=== PATIENT | male | born 1980 | race Caucasian/White ===

== ENCOUNTER 2018-09-14 21:27 | Emergency (ER) | payer BC ==
[~2018-09-14] VITALS: Ht 190.5 cm; Wt 136.1 kg
[~2018-09-14 21:27] MED LIST: ALBU2.5V8 IH; AZIT250T6 PO; HYDR-2145 PO; Hydrocodone/Chlorphen Polis PO; Ipratropium/Albuterol Sulfate NEB; LEVO500T59 PO; PRED10TA2 PO; PRED2.5T PO
--- NOTE | 2018-09-14 21:33 | ED.ADGEN ---
Adult General Chief Complaint Chief Complaint ".. I think .. 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 Has poison jaquan/poison oak pattern. Extensive area of rash on legs and arms. Patient's tetanus is up-to-date. No recent travel. No specific ill contacts. No history immunosuppression. Patient does not smoke. Does occasionally drink. Review of Systems Review of Systems Constitutional: Denies fever or chills [] Eyes: Denies change in visual acuity, redness, or eye pain [] HENT: Denies nasal congestion or sore throat [] Respiratory: Denies cough or shortness of breath [] Cardiovascular: No additional information not addressed in HPI [] GI: Denies abdominal pain, nausea, vomiting, bloody stools or diarrhea [] : Denies dysuria or hematuria [] Musculoskeletal: Denies back pain or joint pain [] Integument: Complaints of poison jaquan Neurologic: Denies headache, focal weakness or sensory changes [] Endocrine: Denies polyuria or polydipsia [] All other systems were reviewed and found to be within normal limits, except as documented in this note. Family History Family History Noncontributory Current Medications Current Medications Current Medications Medications (Trade) Dose Ordered Sig/Jennifer Start Time Stop Time Status Last Admin Dose Admin Methylprednisolone Acetate (DEPO-Medrol IM) 40 mg 1X ONCE 09/14/18 21:45 09/14/18 21:48 DC 09/14/18 21:43 40 MG Allergies Allergies Allergies Coded Allergies Type Severity Reaction Last Updated Verified I S O L A T I O N *CONTACT* Allergy Unknown 12/31/14 No NKMA Allergy Unknown 12/31/14 No Physical Exam Physical Exam Constitutional: Well developed, well nourished, moderate acute distress, non- toxic appearance. [] HENT: Normocephalic, atraumatic, bilateral external ears normal, oropharynx moist, no oral exudates, nose normal. [] Eyes: PERRLA, EOMI, conjunctiva normal, no discharge. [] Neck: Normal range of motion, no tenderness, supple, no stridor. [] Cardiovascular:Heart rate regular rhythm, no murmur [] Lungs & Thorax: Bilateral breath sounds clear to auscultation [] Abdomen: Bowel sounds normal, soft, no tenderness, no masses, no pulsatile masses. [] Skin: Warm, dry, no erythema, stents. Contact dermatitis-poison jaquan/poison oak pattern. Tattoos Back: No tenderness, no CVA tenderness. [] Extremities: No tenderness, no cyanosis, no clubbing, ROM intact, no edema. [] Neurologic: Alert and oriented X 3, normal motor function, normal sensory func tion, no focal deficits noted. [] Psychologic: Affect normal, judgement normal, mood normal. [] Current Patient Data Vital Signs Vital Signs Date Time Temp Pulse Resp B/P (MAP) Pulse Ox O2 Delivery O2 Flow Rate FiO2 09/14/18 21:37 98.2 78 18 98 Room Air EKG EKG [] Radiology/Procedures Radiology/Procedures [] Course & Med Decision Making Course & Med Decision Making Pertinent Labs and Imaging studies reviewed. (See chart for details) Patient wash rash 4 times a day with soap and water. Then massage in Polysporin and hydrocortisone ointment. Patient take Tylenol and ibuprofen for discomfort. Patient to do prednisone taper. Benadryl 25-50 mg up to 4 times a day for severe itching. Follow-up primary care. Return if any con cerns. [] Final Impression Final Impression 1. Contact Dermatitis[]- poison jaquan/ oak pattern. Dragon Disclaimer Dragon Disclaimer This electronic medical record was generated, in whole or in part, using a voice recognition dictation system. CORY SULLIVAN MD Sep 14, 2018 21:32
[2018-09-14 21:37] VITALS: BP 128/77
[2018-09-14] MEDS ORDERED: methylPREDNISolone ACETATE 40 MG/ML VIAL. IM ONE (21:45)
[2018-09-14] MEDS ORDERED: PRED-220 PO (21:47)
== END 2018-09-14 21:58 | disposition home or self-care (01) ==
LOC: ER 21:27
DX: L23.7 Allergic contact dermatitis due to plants, except food (principal); Z91.041 Radiographic dye allergy status
CPT/HCPCS: 96372; 99283; J1030

== ENCOUNTER 2018-09-20 17:53 | Emergency (ER) | payer BC ==
[~2018-09-20] VITALS: Ht 190.5 cm; Wt 136.1 kg
[~2018-09-20 17:53] MED LIST changes: +PRED-220 PO
[2018-09-20 18:07] VITALS: BP 161/100
[2018-09-20] MEDS ORDERED: methylPREDNISolone SOD SUCC PF 125 MG/2 ML VIAL. IV ONE (18:15)
[2018-09-20] MEDS ORDERED: TRIA15CR50 TP (18:25)
[2018-09-20] MEDS ORDERED: PRED-220 PO (18:25)
--- NOTE | 2018-09-20 18:25 | PHYS DOC ---
Past History Past Medical History: No Pertinent History Past Surgical History: Gastric Bypass Alcohol Use: Rarely Drug Use: None Adult General Chief Complaint Chief Complaint: SKIN PROBLEM HPI HPI 38-year-old male presents with rash. The patient was seen by my colleague on the for poison felisa. He has been taking his prednisone. The patient has had additional areas on his arms, back, and legs erupt while he is on prednisone. The patient realizes he must have gotten into more of it by throwing away some trash bags that were used on the original trip where he got the first exposure. It is intensely pruritic. The patient is taking Benadryl multiple times a day. He is also using hydrocortisone topical cream. He denies any other complaints. Review of Systems Review of Systems Constitutional: Denies fever or chills [] Eyes: Denies change in visual acuity, redness, or eye pain [] HENT: Denies nasal congestion or sore throat [] Respiratory: Denies cough or shortness of breath [] Cardiovascular: No additional information not addressed in HPI [] GI: Denies abdominal pain, nausea, vomiting, bloody stools or diarrhea [] : Denies dysuria or hematuria [] Musculoskeletal: Denies back pain or joint pain [] Integument: Rash [] Neurologic: Denies headache, focal weakness or sensory changes [] Endocrine: Denies polyuria or polydipsia [] All other systems were reviewed and found to be within normal limits, except as documented in this note. Current Medications Current Medications Current Medications Medications (Trade) Dose Ordered Sig/Jennifer Start Time Stop Time Status Last Admin Dose Admin Methylprednisolone Sodium Succinate (SOLU-Medrol 125MG VIAL) 125 mg 1X ONCE 09/20/18 18:15 09/20/18 18:16 UNV Allergies Allergies Allergies Coded Allergies Type Severity Reaction Last Updated Verified I S O L A T I O N *CONTACT* Allergy Unknown 12/31/14 No NKMA Allergy Unknown 12/31/14 No Physical Exam Physical Exam Constitutional: Well developed, well nourished, no acute distress, non-toxic appearance. [] HENT: Normocephalic, atraumatic, bilateral external ears normal, oropharynx moist, no oral exudates, nose normal. [] Eyes: PERRLA, EOMI, conjunctiva normal, no discharge. [] Neck: Normal range of motion, no tenderness, supple, no stridor. [] Cardiovascular:Heart rate regular rhythm, no murmur [] Lungs & Thorax: Bilateral breath sounds clear to auscultation [] Abdomen: Bowel sounds normal, soft, no tenderness, no masses, no pulsatile masses. [] Skin: Erythematous patches with vesicles consistent with poison felisa[] Back: No tenderness, no CVA tenderness. [] Extremities: No tenderness, no cyanosis, no clubbing, ROM intact, no edema. [] Neurologic: Alert and oriented X 3, normal motor function, normal sensory function, no focal deficits noted. [] Psychologic: Affect normal, judgement normal, mood normal. [] EKG EKG [] Radiology/Procedures Radiology/Procedures [] Course & Med Decision Making Course & Med Decision Making Pertinent Labs and Imaging studies reviewed. (See chart for details) The patient appears to have gone into more was an IV. I will re-dose his Solu- Medrol 125 and restart his taper at a higher dose. I will also prescribe triamcinolone as a stronger topical for his itching. The patient will add Pepcid twice a day to his as needed Benadryl. He is stable for discharge at this time. [] Dragon Disclaimer Dragon Disclaimer This electronic medical record was generated, in whole or in part, using a voice recognition dictation system. Departure Departure: Impression: Primary Impression: Poison felisa dermatitis Disposition: 01 HOME, SELF-CARE Condition: STABLE Referrals: JANELLE QUAN MD (PCP) Patient Instructions: Poison Felisa, [id number] Scripts Triamcinolone Acetonide (TRIAMCINOLONE ACETONIDE) 15 Gm Cream..g. 1 REINA TP BID for poison felisa for 7 Days, #30 GM 0.1% Prov: MENDY PUENTE DO 09/20/18 Prednisone (PREDNISONE) 10 Mg Tablet 10 MG PO UD for PREDNISONE TAPER, #39 TAB 0 Refills Take 5 tablets by mouth daily for 3 days, then take 4 tablets by mouth daily for 3 days, then take 3 tablet by mouth daily for 2 days, then take 2 tablet by mouth daily for 2 days, then take 1 tablet by mouth daily for 2 days, then stop. Prov: MENDY PUENTE DO 09/20/18 MENDY PUENTE DO Sep 20, 2018 18:25
== END 2018-09-20 18:27 | disposition home or self-care (01) ==
LOC: ER 17:53
DX: L23.7 Allergic contact dermatitis due to plants, except food (principal); Z98.84 Bariatric surgery status; Z91.041 Radiographic dye allergy status
CPT/HCPCS: 96374; 99284; J2930

== ENCOUNTER 2018-09-24 16:55 | Emergency (ER) | payer BC ==
[~2018-09-24] VITALS: Ht 190.5 cm; Wt 136.1 kg
[~2018-09-24 16:55] MED LIST changes: +TRIA15CR50 TP
[2018-09-24 17:14] VITALS: BP 143/89
[2018-09-24] MEDS ORDERED: LIDOCAINE 1%/EPI 1:100,000 20 ML VIAL. IJ ONE (18:15)
[2018-09-24] MEDS ORDERED: NEOMY/BACITR/POLYMYXIN OINT PACKET. TP ONE (18:15)
[2018-09-24] MEDS ORDERED: DIPHTH,PERTUSS(ACELL),TET TOX 0.5 ML DISP.SYRIN. VAX IM ONE (18:15)
--- NOTE | 2018-09-24 19:00 | PHYS DOC ---
Past History Past Medical History: Anxiety Past Surgical History: Gastric Bypass Smoking: Non-smoker Alcohol Use: Occasionally Drug Use: None Adult General Chief Complaint Chief Complaint: LACERATION/AVULSION HPI HPI Patient is a 38-year-old male who presents with laceration on right leg. He was mowing the lawn when a piece of metal shot up from the ground and hit his right leg. Initially with some increased bleeding. Patient initially tied a towel around his leg with interval improvement of bleeding. Reports stinging and burning around the cut, but the pain went away once he arrived to the emergency department. He does not remember when his last tetanus vaccine was. Review of Systems Review of Systems Constitutional: Denies fever or chills Eyes: Denies redness or eye pain HENT: Denies nasal congestion or sore throat Respiratory: Denies cough or shortness of breath Cardiovascular: Denies chest pain or palpitations GI: Denies abdominal pain, nausea, or vomiting : Denies dysuria or hematuria Musculoskeletal: Denies back pain or joint pain Integument: Denies rash, reports laceration on right leg Neurologic: Denies headache, focal weakness or sensory changes Complete systems were reviewed and found to be within normal limits, except as documented in this note. Current Medications Current Medications Current Medications Medications (Trade) Dose Ordered Sig/Jennifer Start Time Stop Time Status Last Admin Dose Admin Diphtheria/ Tetanus/Acell Pertussis (Boostrix) 0.5 ml ONCE ONCE 09/24/18 18:15 09/24/18 18:16 DC 09/24/18 18:23 0.5 ML Lidocaine/ Epinephrine (Xylocaine 1%-Epi 1:100,000) 20 ml 1X ONCE 09/24/18 18:15 09/24/18 18:16 DC Neomycin/ Polymyxin/ Bacitracin (Triple Antibiotic Ointment) 1 pkt 1X ONCE 09/24/18 18:15 09/24/18 18:16 DC Allergies Allergies Allergies Coded Allergies Type Severity Reaction Last Updated Verified I S O L A T I O N *CONTACT* Allergy Unknown 12/31/14 No NKMA Allergy Unknown 12/31/14 No Physical Exam Physical Exam Constitutional: Well developed, well nourished, no acute distress, non-toxic appearance HENT: Normocephalic, atraumatic, oropharynx moist Eyes: Conjunctiva normal, no discharge Neck: Normal range of motion, no tenderness, supple Cardiovascular: Heart rate normal, regular rhythm Lungs & Thorax: Bilateral breath sounds clear to auscultation, no wheezing Abdomen: Soft, no tenderness Skin: Warm, dry, no erythema, no rash, 4 cm by 1 cm laceration on the anterior aspect of his barboza just lateral to midline. Extremities: No tenderness, ROM intact, no edema Neurologic: Alert and oriented X 3, no focal deficits noted Psychologic: Affect normal, judgement normal Current Patient Data Vital Signs Vital Signs Date Time Temp Pulse Resp B/P (MAP) Pulse Ox O2 Delivery O2 Flow Rate FiO2 09/24/18 17:14 99.8 84 18 95 Room Air EKG EKG [] Radiology/Procedures Radiology/Procedures [] Course & Med Decision Making Course & Med Decision Making Mr. Joseph is a 38-year-old male who presents with right leg laceration. He was mowing the lawn when a piece of metal shot up from the ground and hit him in the right barboza just lateral to midline. He does not remember when his last tetanus vaccine was. On physical exam he has a 4 cm x 1 cm laceration in his right lower extremity on the anterior/lateral aspect of his leg. He has 2 other small cuts along his right barboza below his knee. He was given a tetanus booster. The wound was cleaned and repaired with sutures. The area was covered with sterile bandaging. Patient stable for discharge with outpatient follow-up with PCP. Discussed findings and plan with patient and family, who acknowledge understanding and agreement. Dragon Disclaimer Dragon Disclaimer This electronic medical record was generated, in whole or in part, using a voice recognition dictation system. Departure Departure: Impression: Primary Impression: Laceration Additional Impression: Requires a booster tetanus Disposition: 01 HOME, SELF-CARE Condition: IMPROVED Referrals: JANELLE QUAN MD (PCP) Patient Instructions: Laceration Care, Adult, [id number], VIS, Tetanus, Diphtheria (Td); Tetanus, Diphtheria, Pertussis (Tdap) - CDC Additional Instructions: Do not soak your wound. You may shower. Clean wound daily with soap and water. Change dressing 2 times daily. Use over the counter antibiotic ointment with each dressing change. Sutures need to be removed in 7-10 days. Present to your family doctor or local urgent care for removal. You may also present to the ED but it will be an additional visit/charge. After suture removal you may use Vitamin E ointment to soften the wound and prevent scarring. Laceration/Wound Repair Laceration/Wound Repair : Wound Location: lower extremity (right) Wound's Depth, Shape: superficial Wound Length (cm): 4 Wound Explored: no foreign body removed Irrigated w/ Saline (ccs): 50 Betadine Prep?: Yes Anesthesia: Lidocaine w/ Epi (1%) Volume Anesthetic (ccs): 5 Wound Debrided: minimal Wound Repaired With: sutures Suture Size/Type: 4:0, nylon Number of Sutures: 5 Layer Closure?: No Sterile Dressing Applied?: Yes Splint Applied?: No Sling Applied?: No Progress Verbal consent obtained. Time out performed. Hand hygiene utilized. Wound cleaned with ChloraPrep. Anesthesia obtained via a 25-gauge hypodermic needle with 5 mL's of lidocaine 1% with epinephrine. Copious irrigation performed. Wound well approximated with 4-0 Nylon x 5 sutures. Patient tolerated procedure well and without difficulty. Empiric antibiotic ointment applied prior to sterile dressing. Problem Qualifiers BRANDON SCHULER DO Sep 24, 2018 19:00
== END 2018-09-24 19:09 | disposition home or self-care (01) ==
LOC: ER 16:55
DX: S81.811A Laceration without foreign body, right lower leg, initial encounter (principal); Z23 Encounter for immunization; Z98.84 Bariatric surgery status; Z91.041 Radiographic dye allergy status; W26.8XXA Contact with other sharp object(s), not elsewhere classified, initial encounter; Y93.89 Activity, other specified; Y92.89 Other specified places as the place of occurrence of the external cause; Y99.8 Other external cause status
CPT/HCPCS: 12002; 90471; 90715; 99283

== ENCOUNTER 2018-10-12 20:30 | Emergency (ER) | payer OTHER, BC ==
[~2018-10-12] VITALS: Ht 190.5 cm; Wt 136.1 kg
--- NOTE | 2018-10-12 20:36 | ED.ADGEN ---
Past History Past Medical History: Anxiety Past Surgical History: Gastric Bypass Smoking: Non-smoker Alcohol Use: Occasionally Drug Use: None Adult General Chief Complaint Chief Complaint ".. I was bending over.. and came up and hit my head on window edge... 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 top of head. Pt. Has two laceration one 0.5 cm and one 2 cm to top right of head. Has surrounding contusion to lacerations. No hx loss of consciousness. Patient up-to-date with tetanus. No recent travel. No specific ill contacts. Patient has no history immunosuppression. No travel or specific ill contacts Review of Systems Review of Systems Constitutional: Denies fever or chills [] Eyes: Denies change in visual acuity, redness, or eye pain [] HENT: Denies nasal congestion or sore throat []head contusion and lacerations Respiratory: Denies cough or shortness of breath [] Cardiovascular: No additional information not addressed in HPI [] GI: Denies abdominal pain, nausea, vomiting, bloody stools or diarrhea [] : Denies dysuria or hematuria [] Musculoskeletal: Denies back pain or joint pain [] Integument: Denies rash or skin lesions [] Neurologic: Complains of headache. Denies, focal weakness or sensory changes [] Endocrine: Denies polyuria or polydipsia [] All other systems were reviewed and found to be within normal limits, except as documented in this note. Family History Family History Noncontributory Current Medications Current Medications Current Medications Medications (Trade) Dose Ordered Sig/Jennifer Start Time Stop Time Status Last Admin Dose Admin Hydrocodone Bitartrate/ Ibuprofen (Vicoprofen 7.5-200) 2 tab 1X ONCE 10/12/18 21:00 10/12/18 21:01 DC 10/12/18 20:58 2 TAB Allergies Allergies Allergies Coded Allergies Type Severity Reaction Last Updated Verified I S O L A T I O N *CONTACT* Allergy Unknown 12/31/14 No NKMA Allergy Unknown 12/31/14 No Physical Exam Physical Exam Constitutional: Well developed, well nourished, moderate acute distress, non- toxic appearance. [] HENT: Normocephalic, due to skin lacerations as per history of present illness, bilateral external ears normal, oropharynx moist, no oral exudates, nose normal. [] Eyes: PERRLA, EOMI, conjunctiva normal, no discharge. [] Neck: Normal range of motion, no tenderness, supple, no stridor. [] Cardiovascular:Heart rate regular rhythm, no murmur [] Lungs & Thorax: Bilateral breath sounds clear to auscultation [] Abdomen: Bowel sounds normal, soft, no tenderness, no masses, no pulsatile masses. [] Old surgery scars. Skin: Warm, dry, no erythema, no rash. [] Back: No tenderness, no CVA tenderness. [] Extremities: No tenderness, no cyanosis, no clubbing, ROM intact, no edema. [] Neurologic: Alert and oriented X 3, normal motor function, normal sensory function, no focal deficits noted. []Patient in Lipitor without problems. DTRs +2 brachial and patella Psychologic: Affect normal, judgement normal, mood normal. [] Current Patient Data Vital Signs Vital Signs Date Time Temp Pulse Resp B/P (MAP) Pulse Ox O2 Delivery O2 Flow Rate FiO2 10/12/18 20:55 99 20 135/76 (95) 97 Room Air 10/12/18 20:30 98.3 EKG EKG [] Radiology/Procedures Radiology/Procedures [] Course & Med Decision Making Course & Med Decision Making Pertinent Labs and Imaging studies reviewed. (See chart for details) Procedure note : Clean laceration with peroxide and saline . Application of tissue glue with hematocrit closure. Patient keep site clean and dry. No direct shower water. Follow-up primary care. Follow-up work comp. They have Vicoprofen for headache. Return if any neuro changes. No working if taking Vicoprofen [] Final Impression Final Impression 1. Head Laceration[] lacerations and contusion- total length of lacerations 2.5 cm Dragon Disclaimer Dragon Disclaimer This electronic medical record was generated, in whole or in part, using a voice recognition dictation system. 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 Discharge Information Condition at Discharge: Improved, Stable Disposition/Orders: D/C to Home Dischare Medications Current Medications Hydrocodone Bitartrate/ Ibuprofen (Vicoprofen 7.5-200) 2 tab 1X ONCE PO Last administered on 10/12/18at 20:58; Admin Dose 2 TAB; Start 10/12/18 at 21:00; Stop 10/12/18 at 21:01; Status DC Active Scripts Active Hydrocodone-Ibuprofen 7.5-200 (Hydrocodone/Ibuprofen) 1 Each Tablet 1 Tab PO PRN Q6HRS PRN Triamcinolone Acetonide 15 Gm Cream..g. 1 Simón TP BID 7 Days 0.1% Prednisone 10 Mg Tablet 10 Mg PO UD Take 5 tablets by mouth daily for 3 days, then take 4 tablets by mouth daily for 3 days, then take 3 tablet by mouth daily for 2 days, then take 2 tablet by mouth daily for 2 days, then take 1 tablet by mouth daily for 2 days, then stop. Prednisone 10 Mg Tablet 10 Mg PO DAILY Prednisone 10 Mg Tablet 10 Mg PO DAILY Levaquin (Levofloxacin) 500 Mg Tablet 1 Tab PO DAILY [Ipratropium/Albuterol Sulfate] 3 ML Nebu 3 Ml NEB RTQID [Hydrocodone/Chlorphen Polis] 5 ML Ailyn.er.12h 5 Ml PO PRN Q12HR PRN Reported Hydrochlorothiazide Tablet (Hydrochlorothiazide) 25 Mg Tablet 1 Tab PO DAILY for high blood pressure last dose: 10/15 AM next dose: 10/16 AM Proair Hfa Inhaler (Albuterol Sulfate) 8.5 Gm Hfa.aer.ad 2 Puff IH Q4HRS PRN take as needed for wheezing not given this admission Dragon Disclaimer This chart was dictated in whole or in part using Voice Recognition software in a busy, high-work load, and often noisy Emergency Department environment. It may contain unintended and wholly unrecognized errors or omissions. CORY SULLIVAN MD Oct 12, 2018 20:36
[2018-10-12] MEDS ORDERED: HYDR-1179 PO (20:50)
[2018-10-12 20:55] VITALS: BP 135/76
[2018-10-12] MEDS ORDERED: HYDROcodon/IBUPROFEN 7.5/200MG 1 TAB TABLET PO ONE (21:00)
== END 2018-10-12 20:58 | disposition home or self-care (01) ==
LOC: ER 20:30
DX: S01.01XA Laceration without foreign body of scalp, initial encounter (principal); Z91.041 Radiographic dye allergy status; W22.8XXA Striking against or struck by other objects, initial encounter; Y93.89 Activity, other specified; Y92.89 Other specified places as the place of occurrence of the external cause; Y99.8 Other external cause status
CPT/HCPCS: 12001; 99283

== ENCOUNTER 2018-11-28 04:08 | Emergency (ER) | payer BC, OTHER ==
[~2018-11-28 04:08] MED LIST changes: +HYDR-1179 PO
[2018-11-28] MEDS ORDERED: ONDANSETRON PF 4 MG/2 ML VIAL. IV ONE (04:45)
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
[2018-11-28 04:59] LABS: BASO # 0.1 x10^3/uL (0.0-0.2); BASO % 1 % (0-3); EOS % 0 % (0-3); HEMATOCRIT 45.7 % (39.0-53.0); HEMOGLOBIN 15.3 g/dL (13.0-17.5); LYMPH # 1.7 x10^3/uL (1.0-4.8); LYMPH % 15 % (24-48); MEAN CORPUSCULAR HEMOGLOBIN 29 pg (25-35); MEAN CORPUSCULAR HGB CONC 34 g/dL (31-37); MEAN CORPUSCULAR VOLUME 85 fL (79-100); MONO # 0.9 x10^3/uL (0.0-1.1); MONO % 8 % (0-9); NEUT # 8.8 x10^3uL (1.8-7.7); NEUT % 76 % (31-73); PLATELET COUNT 264 x10^3/uL (140-400); RED BLOOD COUNT 5.35 x10^6/uL (4.30-5.70); RED CELL DISTRIBUTION WIDTH 14.2 % (11.5-14.5); WHITE BLOOD COUNT 11.5 x10^3/uL (4.0-11.0)
[2018-11-28] MEDS ORDERED: IV NORMAL SALINE 1,000ML 1,000 ML IV ONE (05:00)
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
[2018-11-28 05:10] LABS: ALBUMIN/GLOBULIN RATIO 1.3 (1.0-1.7); CALCIUM 8.5 mg/dL (8.5-10.1); CREATININE 0.9 mg/dL (0.7-1.3); GFR 95.5; POTASSIUM 3.4 mmol/L (3.5-5.1); TOTAL BILIRUBIN 0.6 mg/dL (0.2-1.0); TOTAL PROTEIN 7.2 g/dL (6.4-8.2)
[2018-11-28 05:47] LABS: BILIRUBIN,URINE NEG (NEG); CLARITY,URINE CLEAR; COLOR,URINE YELLOW; GLUCOSE,URINE NEG (NEG); UROBILINOGEN,URINE 0.2 mg/dL (0.2 mg/dL)
[2018-11-28 05:48] LABS: BACTERIA,URINE 0 /HPF (0-FEW); NITRITE,URINE NEG (NEG); RBC,URINE 0 /HPF (0-2); WBC,URINE OCC /HPF (0-4)
[2018-11-28] MEDS ORDERED: DICL50TA4 PO (06:00)
[2018-11-28] MEDS ORDERED: HYDR-2765 PO (06:00)
[2018-11-28] MEDS ORDERED: NEOMY/BACITR/POLYMYXIN OINT PACKET. TP ONE (06:30)
[2018-11-28 06:38] VITALS: BP 118/66
== END 2018-11-28 07:00 | disposition home or self-care (01) ==
LOC: ER 04:08
DX: S83.91XA Sprain of unspecified site of right knee, initial encounter (principal); S20.211A Contusion of right front wall of thorax, initial encounter; S50.312A Abrasion of left elbow, initial encounter; Z98.84 Bariatric surgery status; Z91.041 Radiographic dye allergy status; V29.9XXA Motorcycle rider (driver) (passenger) injured in unspecified traffic accident, initial encounter; Y93.55 Activity, bike riding; Y92.488 Other paved roadways as the place of occurrence of the external cause; Y99.8 Other external cause status
CPT/HCPCS: 29505; 36415; 71101; 73562; 80053; 81001; 85025; 96374; 96375; 99285; G0480; J2405; J3010; J7030

== ENCOUNTER 2018-12-04 20:43 | Emergency (ER) | payer BC ==
[~2018-12-04 20:43] MED LIST changes: +DICL50TA4 PO; +HYDR-2765 PO
--- NOTE | 2018-12-04 20:55 | ED.ADGEN ---
Past History Past Medical History: No Pertinent History, Anxiety Past Surgical History: Gastric Bypass Smoking: Non-smoker Alcohol Use: Occasionally Drug Use: None Adult General Chief Complaint Chief Complaint Pt. left before seen. HPI HPI Patient is a 38 year old male who presents with complaints of rib pain. Pt. left from waiting room before seen. Review of Systems Review of Systems Pt. left from waiting room before seen. Allergies Allergies Allergies Coded Allergies Type Severity Reaction Last Updated Verified I S O L A T I O N *CONTACT* Allergy Unknown 12/31/14 No NKMA Allergy Unknown 12/31/14 No Physical Exam Physical Exam Pt. left from waiting room before seen. EKG EKG [] Radiology/Procedures Radiology/Procedures [] Course & Med Decision Making Course & Med Decision Making Pertinent Labs and Imaging studies reviewed. (See chart for details) [] Final Impression Final Impression [] Dragon Disclaimer Dragon Disclaimer This electronic medical record was generated, in whole or in part, using a voice recognition dictation system. CORY SULLIVAN MD Dec 04, 2018 20:55
--- NOTE | 2018-12-05 05:14 | NUR ---
PATIENT LEFT PRIOR TO INITIAL EVALUATION BY ED PHYSICIAN.
== END 2018-12-04 20:46 | disposition home or self-care (01) ==
LOC: ER 20:43
DX: R07.81 Pleurodynia (principal); F41.9 Anxiety disorder, unspecified; Z53.21 Procedure and treatment not carried out due to patient leaving prior to being seen by health care provider; Z91.041 Radiographic dye allergy status